=== PATIENT | female | born 1990 | race Caucasian/White ===

== ENCOUNTER 2018-02-04 00:19 | Emergency (ER) | payer SELFPAY ==
[2018-02-04] MEDS ORDERED: PERCOCET 5/325 ONE (01:10)
[2018-02-04] MEDS ORDERED: PERCOCET 5/325 PO ONE (01:12)
--- NOTE | 2018-02-04 01:16 | Emergency Department Report ---
ED Lower Extremity HPI - General Chief Complaint: Extremity Injury, Lower Stated Complaint: LT LEG PAIN Time Seen by Provider: 02/04/18 00:49 Source: patient Mode of arrival: Ambulatory Limitations: Language Barrier - History of Present Illness Initial Comments: 27-year-old female comes in stating she was riding her horse of her daughter and the horse fell on her left side. Patient denies any loss of consciousness she's not hitting her head. She has no known drug allergies currently takes no medications on a daily basis has no past medical history. Linotyper I Used was [id number] Complaint: leg injury, ankle injury -: This afternoon Injury: Leg: Left, Ankle: Left Place: street/outdoors Severity: severe Severity scale (0 -10): 10 Context: direct blow (horse fell on patient) - Related Data Previous Rx's Medication Instructions Recorded Last Taken Type Ibuprofen [Motrin 800 MG tab] 800 mg PO Q8HR PRN #30 tablet 02/04/18 Unknown Rx Allergies Allergy/AdvReac Type Severity Reaction Status Date / Time No Known Allergies Allergy Verified 02/04/18 01:35 ED Review of Systems ROS: Stated complaint: LT LEG PAIN Other details as noted in HPI Constitutional: denies: chills, fever Eyes: denies: eye pain, eye discharge, vision change ENT: denies: ear pain, throat pain Respiratory: denies: cough, shortness of breath, wheezing Cardiovascular: denies: chest pain, palpitations Endocrine: no symptoms reported Gastrointestinal: denies: abdominal pain, nausea, diarrhea Genitourinary: denies: urgency, dysuria, discharge Musculoskeletal: arthralgia (left thigh left side of hip) Skin: denies: rash, lesions Neurological: denies: headache, weakness, paresthesias Psychiatric: denies: anxiety, depression ED Past Medical Hx - Past Medical History Previous Medical History?: No - Surgical History Past Surgical History?: No - Social History Smoking Status: Never Smoker Substance Use Type: None - Medications Home Medications: Home Medications Medication Instructions Recorded Confirmed Last Taken Type Ibuprofen [Motrin 800 MG tab] 800 mg PO Q8HR PRN #30 tablet 02/04/18 Unknown Rx ED Physical Exam - General Limitations: Language Barrier General appearance: alert, in no apparent distress - Head Head exam: Present: atraumatic, normocephalic - ENT ENT exam: Present: mucous membranes moist - Neck Neck exam: Present: full ROM. Absent: lymphadenopathy - Respiratory Respiratory exam: Present: normal lung sounds bilaterally. Absent: respiratory distress - Cardiovascular Cardiovascular Exam: Present: regular rate, normal rhythm. Absent: systolic murmur, diastolic murmur, rubs, gallop - GI/Abdominal GI/Abdominal exam: Present: soft, normal bowel sounds. Absent: distended, tenderness - Expanded Lower Extremity Exam Left Hip exam: Present: full ROM. Absent: tenderness, swelling Upper Leg exam: Present: full ROM, tenderness, swelling, ecchymosis Knee exam: Present: normal inspection, full ROM. Absent: tenderness, swelling Lower Leg exam: Present: normal inspection, full ROM. Absent: tenderness, swelling Ankle exam: Present: normal inspection, full ROM. Absent: tenderness Gait: Positive: observed and limited by pain - Back Exam Back exam: Present: normal inspection, full ROM. Absent: tenderness - Neurological Exam Neurological exam: Present: alert, oriented X3 - Psychiatric Psychiatric exam: Present: normal affect, normal mood - Skin Skin exam: Present: warm, dry, intact, normal color. Absent: rash ED Course Vital Signs 02/04/18 00:29 Temperature 97.7 F Pulse Rate 91 H Respiratory 18 Rate Blood Pressure 122/66 O2 Sat by Pulse 100 Oximetry ED Lower Extremity MDM - Radiology Data Radiology results: report reviewed, image reviewed FINAL REPORT PROCEDURE: XR FEMUR 2+V LT TECHNIQUE: LEFT femur radiographs, AP and lateral views. HISTORY: horse fell on patient COMPARISON: No prior studies are available for comparison. FINDINGS: Fracture (s) and/or Dislocation(s): None . Joint space(s): Normal . Soft tissues: Normal . Bone mineralization: Normal . Foreign bodies: None . IMPRESSION: Normal Examination Transcribed By: [facility] Dictated By: NATHALY ROBB MD Electronically Authenticated By: NATHALY ROBB MD Signed Date/Time: 02/04/18139 DD/ 9 TD/TT: 02/04/18139 FINAL REPORT PROCEDURE: XR PELVIS 1-2V TECHNIQUE: Pelvis radiograph, AP view. CPT 58023 HISTORY: horse fell on patient left side COMPARISON: No prior studies are available for comparison. FINDINGS: Fracture(s): None . Joint spaces: Normal . Soft tissues: Normal . Foreign bodies: None . Bone mineralization: Normal . IMPRESSION: Normal Examination Transcribed By: [facility] Dictated By: NATHALY ROBB MD Electronically Authenticated By: NATHALY ROBB MD Signed Date/Time: 02/04/18140 DD/ 0 TD/TT: 02/04/18140 Critical care attestation.: If time is entered above; I have spent that time in minutes in the direct care of this critically ill patient, excluding procedure time. ED Disposition Clinical Impression: Contusion of left thigh, initial encounter, Animal-rider injured by fall from or being thrown from horse in noncollision accident, initial encounter Disposition: TO HOME OR SELFCARE Is pt being admited?: No Does the pt Need Aspirin: No Condition: Stable Instructions: Fall Prevention (ED) Additional Instructions: Please take pain medication as prescribed. If symptoms persist or gets worse please follow up with her primary care provider. U have no fractures or dislocations. U have a contusion to your muscle of your thigh. Prescriptions: Ibuprofen [Motrin 800 MG tab] 800 mg PO Q8HR PRN #30 tablet PRN Reason: Pain Referrals: PRIMARY CARE, [Primary Care Provider] - 3-5 Days [facility] [Provider Group] - 3-5 Days
--- NOTE | 2018-02-04 01:45 | XRay Report ---
FINAL REPORT PROCEDURE: XR FEMUR 2+V LT TECHNIQUE: LEFT femur radiographs, AP and lateral views. HISTORY: horse fell on patient COMPARISON: No prior studies are available for comparison. FINDINGS: Fracture (s) and/or Dislocation(s): None . Joint space(s): Normal . Soft tissues: Normal . Bone mineralization: Normal . Foreign bodies: None . IMPRESSION: Normal Examination
--- NOTE | 2018-02-04 01:45 | XRay Report ---
FINAL REPORT PROCEDURE: XR PELVIS 1-2V TECHNIQUE: Pelvis radiograph, AP view. CPT 51944 HISTORY: horse fell on patient left side COMPARISON: No prior studies are available for comparison. FINDINGS: Fracture(s): None . Joint spaces: Normal . Soft tissues: Normal . Foreign bodies: None . Bone mineralization: Normal . IMPRESSION: Normal Examination
[2018-02-04 05:23] VITALS: BP 120/64
== END 2018-02-04 03:30 | disposition home or self-care (01) ==
LOC: ED 00:19
DX: S70.12XA Contusion of left thigh, initial encounter (principal); V80.010A Animal-rider injured by fall from or being thrown from horse in noncollision accident, initial encounter; Y93.52 Activity, horseback riding; Y92.488 Other paved roadways as the place of occurrence of the external cause; Y99.8 Other external cause status
CPT/HCPCS: 72170